=== PATIENT | female | born 1995 | race Hispanic/Latino ===

== ENCOUNTER 2017-07-27 08:06 | Emergency (ER) | payer MEDICAID ==
[2017-07-27 08:41] VITALS: BP 126/79
== END 2017-07-27 09:22 | disposition left against medical advice (07) ==
LOC: ED 08:06
DX: R42 Dizziness and giddiness (principal); Z53.21 Procedure and treatment not carried out due to patient leaving prior to being seen by health care provider

== ENCOUNTER 2021-02-11 00:51 | Emergency (ER) | payer MEDICAID ==
[2021-02-11 02:59] LABS: Basophils # (Auto) 0.1 K/mm3 (0.0-0.1); Basophils % (Auto) 1.1 % (0.0-1.8); Eosinophils # (Auto) 0.2 K/mm3 (0.0-0.4); Eosinophils % (Auto) 3.2 % (0.0-4.3); Hematocrit 39.6 % (30.3-42.9); Hemoglobin 13.2 gm/dl (10.1-14.3); Lymphocytes # (Auto) 2.5 K/mm3 (1.2-5.4); Lymphocytes % (Auto) 45.1 % (13.4-35.0); Mean Corpuscular HGB Conc 33 % (30-34); Mean Corpuscular Volume 84 fl (79-97); Monocytes # (Auto) 0.5 K/mm3 (0.0-0.8); Monocytes % (Auto) 9.5 % (0.0-7.3); Platelet Count 280 K/mm3 (140-440); Red Blood Count 4.69 M/mm3 (3.65-5.03); Red Cell Distribution Width 14.7 % (13.2-15.2)
[2021-02-11 03:03] LABS: Blood Urea Nitrogen 14 mg/dL (7-17); Calcium 9.3 mg/dL (8.4-10.2); Hemolysis Index 7
[2021-02-11 03:22] LABS: BUN/Creatinine Ratio 20
--- NOTE | 2021-02-11 06:38 | Emergency Department Report ---
ED General Adult HPI - General Chief complaint: Pain General Stated complaint: NAUSEA/WEAKNESS PUI?: No Time Seen by Provider: 02/11/21 06:36 Source: patient, EMS ( EMS documentation not available at time of chart dictati on ), RN notes reviewed Mode of arrival: Ambulatory Limitations: No Limitations - History of Present Illness Initial comments: During the history and physical examination, I am chaperoned by ANTONIO PETERSON This is a 25-year-old female. She presents to the ER with a complaint of fee ling "like crap", after recreational methamphetamine binge yesterday. She reports that she is not . She denies headache, neck pain, chest pain. She has abdominal cramping but no vomiting. She denies homicidality and suicidality. She denies loss of taste and smell. She denies focal extremity weakness/numbness. She is sleeping, and when woken up, states I need to be left alone." She is adamant that she is not . She was given Zofran prior to my personal evaluation. -: Gradual, Last night Consistency: now resolved Improves with: none Worsens with: none - Related Data Home Medications Medication Instructions Recorded Confirmed Last Taken Marion Carbonate 600 mg PO HS 08/10/14 08/10/14 08/09/14 Marion Carbonate [Marion 300 mg PO AMHY 08/10/14 08/10/14 08/09/14 Carbonate ER] Sertraline [Zoloft] 25 mg PO QDAY 08/10/14 08/10/14 08/09/14 risperiDONE [RisperDAL] 3 mg PO DAILY 08/10/14 08/10/14 08/09/14 Previous Rx's Medication Instructions Recorded Last Taken Type Acetaminophen [Tylenol] 325 mg PO Q6HR PRN #15 capsule 02/11/21 Unknown Rx Ibuprofen [Motrin] 400 mg PO Q8H PRN #30 tablet 02/11/21 Unknown Rx Naloxone HCl [Narcan Nasal New Site] 4 mg NS PRN PRN #1 spray 02/11/21 Unknown Rx Allergies Allergy/AdvReac Type Severity Reaction Status Date / Time amoxicillin Allergy Swelling Verified 08/10/14 18:08 Penicillins Allergy Swelling Verified 08/10/14 18:08 ED Review of Systems ROS: Stated complaint: NAUSEA/WEAKNESS Other details as noted in HPI Constitutional: denies: fever Eyes: denies: eye discharge ENT: denies: epistaxis Respiratory: denies: cough Cardiovascular: denies: chest pain Gastrointestinal: nausea Musculoskeletal: arthralgia, myalgia Neurological: weakness Psychiatric: denies: auditory hallucinations, visual hallucinations, homicidal thoughts, suicidal thoughts ED Past Medical Hx - Past Medical History Previous Medical History?: Yes Hx Seizures: Yes Hx Psychiatric Treatment: Yes (bipolar, depression) - Surgical History Past Surgical History?: No - Social History Smoking Status: Unknown if ever smoked - Medications Home Medications: Home Medications Medication Instructions Recorded Confirmed Last Taken Type Marion Carbonate 600 mg PO HS 08/10/14 08/10/14 08/09/14 History Marion Carbonate [Marion 300 mg PO AMHY 08/10/14 08/10/14 08/09/14 History Carbonate ER] Sertraline [Zoloft] 25 mg PO QDAY 08/10/14 08/10/14 08/09/14 History risperiDONE [RisperDAL] 3 mg PO DAILY 08/10/14 08/10/14 08/09/14 History Acetaminophen [Tylenol] 325 mg PO Q6HR PRN #15 capsule 02/11/21 Unknown Rx Ibuprofen [Motrin] 400 mg PO Q8H PRN #30 tablet 02/11/21 Unknown Rx Naloxone HCl [Narcan Nasal New Site] 4 mg NS PRN PRN #1 spray 02/11/21 Unknown Rx ED Physical Exam - General Limitations: No Limitations General appearance: alert, in no apparent distress - Head Head exam: Present: atraumatic, normocephalic - Eye Eye exam: Present: normal appearance, EOMI. Absent: nystagmus - ENT ENT exam: Present: normal exam, normal orophraynx, mucous membranes moist, normal external ear exam - Neck Neck exam: Present: normal inspection, full ROM. Absent: tenderness, meningismus - Respiratory Respiratory exam: Present: normal lung sounds bilaterally. Absent: respiratory distress, wheezes, rales, rhonchi, stridor, decreased breath sounds - Cardiovascular Cardiovascular Exam: Present: regular rate, normal rhythm, normal heart sounds. Absent: bradycardia, tachycardia, irregular rhythm, systolic murmur, diastolic murmur, rubs, gallop - GI/Abdominal GI/Abdominal exam: Present: soft. Absent: distended, tenderness, guarding, rebound, rigid, pulsatile mass - Extremities Exam Extremities exam: Present: normal inspection, full ROM, other (2+ pulses noted in the bilateral upper and lower extremities. There is no palpable cord. negative Homans sign. Muscular compartments are soft. The pelvis is stable.). Absent: pedal edema, calf tenderness - Back Exam Back exam: Present: normal inspection. Absent: tenderness, CVA tenderness (R), CVA tenderness (L), paraspinal tenderness, vertebral tenderness - Neurological Exam Neurological exam: Present: alert, oriented X3, other (No facial droop. Tongue midline. Extraocular movements intact bilaterally. Facial sensation intact to light touch in V1, V2, V3 distribution bilaterally. 5 and a 5 strength in 4 extremities. Sensation intact to light touch in 4 extremities.). Absent: motor sensory deficit - Psychiatric Psychiatric exam: Absent: homicidal ideation, suicidal ideation - Skin Skin exam: Present: warm, dry, intact, normal color. Absent: rash ED Course Vital Signs 02/11/21 02/11/21 02:03 12:25 Temperature 98.3 F Pulse Rate 97 H 74 Respiratory 16 18 Rate Blood Pressure 127/66 Blood Pressure 124/72 [Left] O2 Sat by Pulse 100 100 Oximetry - Reevaluation(s) Reevaluation #1: 02/11/21 08:14 Differential diagnosis, including but not limited to: Methamphetamine use, encounter for medical screening examination Assessment and plan: 25-year-old female, who was afebrile, with reassuring vital signs, who is clinically sober at this time, with a GCS of 15, not homicidal not suicidal, who exhibits decision-making capacity, with a soft benign abdomen, who is sleeping on my initial evaluation, and he is in no acute distress. No active vomiting at this time. Physical exam unremarkable. Laboratory studies ordered prior to my personal evaluation. test pending. Assuming patient not , we would consider this patient medically suitable for discharge, without presence of an obvious medically emergent condition 02/11/21 09:54 The patient has a lithium level of 2.1. The patient is adamant that she is not taking lithium. The patient states she is not homicidal or suicidal. The patient is not . Contacted poison control center, and discussed with [facility]. Have discussed the patient's history, physical, laboratory studies, and overall clinical impression. We will place patient on a cafeteria monitor. We will repeat lithium level. If within normal limits/subtherapeutic, would consider patient medically suitable for discharge. We will contact Poison Control Center once the patient's repeat lithium level has resulted. 02/11/21 11:09 Repeat lithium level 0.1. Have recontacted read at the Poison Control Center. Recommends a second level to ascertain that level has truly been persistently decreasing. Recommend 2-hour level. Please note that this patient is going to experience a prolonged stay in the emergency room because of the need for urgent diagnostic medical work-up. I suspect that the initial lithium level at this point time of 2.1 is likely an error, and/or hemolysis. The patient states she is not taking lithium. The patient states she is not suicidal. The patient states she is not homicidal. However, 2-hour level is ordered, and if unremarkable, plan is to discharge this patient. 02/11/21 13:43 Patient ambulating with a steady gait. Marion level unremarkable x2. Observed in this department for hours without clinical decompensation. Suitable for discharge at this point time. ED Medical Decision Making - Lab Data Result diagrams: 02/11/21 02:25 02/11/21 02:25 Vital Signs 02/11/21 02:03 Temperature 98.3 F Pulse Rate 97 H Respiratory 16 Rate Blood Pressure 127/66 O2 Sat by Pulse 100 Oximetry Vital Signs 02/11/21 02:03 Temperature 98.3 F Pulse Rate 97 H Respiratory 16 Rate Blood Pressure 127/66 O2 Sat by Pulse 100 Oximetry Lab Results 02/11/21 02/11/21 02/11/21 Range/Units 02:25 02:25 02:25 WBC (4.5-11.0) K/mm3 RBC (3.65-5.03) M/mm3 Hgb (10.1-14.3) gm/dl Hct (30.3-42.9) % MCV (79-97) fl MCH (28-32) pg MCHC (30-34) % RDW (13.2-15.2) % Plt Count (140-440) K/mm3 Lymph % (Auto) (13.4-35.0) % [place] % (Auto) (0.0-7.3) % Eos % (Auto) (0.0-4.3) % Baso % (Auto) (0.0-1.8) % Lymph # (Auto) (1.2-5.4) K/mm3 [place] # (Auto) (0.0-0.8) K/mm3 Eos # (Auto) (0.0-0.4) K/mm3 Baso # (Auto) (0.0-0.1) K/mm3 Seg Neutrophils % (40.0-70.0) % Seg Neutrophils # (1.8-7.7) K/mm3 Sodium 137 (137-145) mmol/L Potassium 4.3 (3.6-5.0) mmol/L Chloride 100.4 (98-107) mmol/L Carbon Dioxide 25 (22-30) mmol/L Anion Gap 16 mmol/L BUN 14 (7-17) mg/dL Creatinine 0.7 (0.6-1.2) mg/dL Estimated GFR > 60 ml/min BUN/Creatinine Ratio 20 % Glucose 83 (65-100) mg/dL Calcium 9.3 (8.4-10.2) mg/dL Salicylates < 0.3 L (2.8-20.0) mg/dL Acetaminophen 5.0 L (10.0-30.0) ug/mL Plasma/Serum Alcohol (0-0.07) % 02/11/21 02/11/21 Range/Units 02:25 02:25 WBC 5.6 (4.5-11.0) K/mm3 RBC 4.69 (3.65-5.03) M/mm3 Hgb 13.2 (10.1-14.3) gm/dl Hct 39.6 (30.3-42.9) % MCV 84 (79-97) fl MCH 28 (28-32) pg MCHC 33 (30-34) % RDW 14.7 (13.2-15.2) % Plt Count 280 (140-440) K/mm3 Lymph % (Auto) 45.1 H (13.4-35.0) % [place] % (Auto) 9.5 H (0.0-7.3) % Eos % (Auto) 3.2 (0.0-4.3) % Baso % (Auto) 1.1 (0.0-1.8) % Lymph # (Auto) 2.5 (1.2-5.4) K/mm3 [place] # (Auto) 0.5 (0.0-0.8) K/mm3 Eos # (Auto) 0.2 (0.0-0.4) K/mm3 Baso # (Auto) 0.1 (0.0-0.1) K/mm3 Seg Neutrophils % 41.1 (40.0-70.0) % Seg Neutrophils # 2.3 (1.8-7.7) K/mm3 Sodium (137-145) mmol/L Potassium (3.6-5.0) mmol/L Chloride (98-107) mmol/L Carbon Dioxide (22-30) mmol/L Anion Gap mmol/L BUN (7-17) mg/dL Creatinine (0.6-1.2) mg/dL Estimated GFR ml/min BUN/Creatinine Ratio % Glucose (65-100) mg/dL Calcium (8.4-10.2) mg/dL Salicylates (2.8-20.0) mg/dL Acetaminophen (10.0-30.0) ug/mL Plasma/Serum Alcohol < 0.01 (0-0.07) % Lab Results 02/11/21 02/11/21 02/11/21 Range/Units 02:25 02:25 02:25 WBC (4.5-11.0) K/mm3 RBC (3.65-5.03) M/mm3 Hgb (10.1-14.3) gm/dl Hct (30.3-42.9) % MCV (79-97) fl MCH (28-32) pg MCHC (30-34) % RDW (13.2-15.2) % Plt Count (140-440) K/mm3 Lymph % (Auto) (13.4-35.0) % [place] % (Auto) (0.0-7.3) % Eos % (Auto) (0.0-4.3) % Baso % (Auto) (0.0-1.8) % Lymph # (Auto) (1.2-5.4) K/mm3 [place] # (Auto) (0.0-0.8) K/mm3 Eos # (Auto) (0.0-0.4) K/mm3 Baso # (Auto) (0.0-0.1) K/mm3 Seg Neutrophils % (40.0-70.0) % Seg Neutrophils # (1.8-7.7) K/mm3 Sodium 137 (137-145) mmol/L Potassium 4.3 (3.6-5.0) mmol/L Chloride 100.4 (98-107) mmol/L Carbon Dioxide 25 (22-30) mmol/L Anion Gap 16 mmol/L BUN 14 (7-17) mg/dL Creatinine 0.7 (0.6-1.2) mg/dL Estimated GFR > 60 ml/min BUN/Creatinine Ratio 20 % Glucose 83 (65-100) mg/dL Calcium 9.3 (8.4-10.2) mg/dL Total Creatine Kinase (30-135) units/L HCG, Quant (0-4) mIU/mL Salicylates < 0.3 L (2.8-20.0) mg/dL Acetaminophen 5.0 L (10.0-30.0) ug/mL Marion (0.0-1.2) mmol/L Plasma/Serum Alcohol (0-0.07) % 02/11/21 02/11/21 02/11/21 Range/Units 02:25 02:25 02:25 WBC 5.6 (4.5-11.0) K/mm3 RBC 4.69 (3.65-5.03) M/mm3 Hgb 13.2 (10.1-14.3) gm/dl Hct 39.6 (30.3-42.9) % MCV 84 (79-97) fl MCH 28 (28-32) pg MCHC 33 (30-34) % RDW 14.7 (13.2-15.2) % Plt Count 280 (140-440) K/mm3 Lymph % (Auto) 45.1 H (13.4-35.0) % [place] % (Auto) 9.5 H (0.0-7.3) % Eos % (Auto) 3.2 (0.0-4.3) % Baso % (Auto) 1.1 (0.0-1.8) % Lymph # (Auto) 2.5 (1.2-5.4) K/mm3 [place] # (Auto) 0.5 (0.0-0.8) K/mm3 Eos # (Auto) 0.2 (0.0-0.4) K/mm3 Baso # (Auto) 0.1 (0.0-0.1) K/mm3 Seg Neutrophils % 41.1 (40.0-70.0) % Seg Neutrophils # 2.3 (1.8-7.7) K/mm3 Sodium (137-145) mmol/L Potassium (3.6-5.0) mmol/L Chloride (98-107) mmol/L Carbon Dioxide (22-30) mmol/L Anion Gap mmol/L BUN (7-17) mg/dL Creatinine (0.6-1.2) mg/dL Estimated GFR ml/min BUN/Creatinine Ratio % Glucose (65-100) mg/dL Calcium (8.4-10.2) mg/dL Total Creatine Kinase (30-135) units/L HCG, Quant < 2 (0-4) mIU/mL Salicylates (2.8-20.0) mg/dL Acetaminophen (10.0-30.0) ug/mL Marion (0.0-1.2) mmol/L Plasma/Serum Alcohol < 0.01 (0-0.07) % 02/11/21 02/11/21 Range/Units 02:25 02:25 WBC (4.5-11.0) K/mm3 RBC (3.65-5.03) M/mm3 Hgb (10.1-14.3) gm/dl Hct (30.3-42.9) % MCV (79-97) fl MCH (28-32) pg MCHC (30-34) % RDW (13.2-15.2) % Plt Count (140-440) K/mm3 Lymph % (Auto) (13.4-35.0) % [place] % (Auto) (0.0-7.3) % Eos % (Auto) (0.0-4.3) % Baso % (Auto) (0.0-1.8) % Lymph # (Auto) (1.2-5.4) K/mm3 [place] # (Auto) (0.0-0.8) K/mm3 Eos # (Auto) (0.0-0.4) K/mm3 Baso # (Auto) (0.0-0.1) K/mm3 Seg Neutrophils % (40.0-70.0) % Seg Neutrophils # (1.8-7.7) K/mm3 Sodium (137-145) mmol/L Potassium (3.6-5.0) mmol/L Chloride (98-107) mmol/L Carbon Dioxide (22-30) mmol/L Anion Gap mmol/L BUN (7-17) mg/dL Creatinine (0.6-1.2) mg/dL Estimated GFR ml/min BUN/Creatinine Ratio % Glucose (65-100) mg/dL Calcium (8.4-10.2) mg/dL Total Creatine Kinase 33 (30-135) units/L HCG, Quant (0-4) mIU/mL Salicylates (2.8-20.0) mg/dL Acetaminophen (10.0-30.0) ug/mL Marion 2.1 H* (0.0-1.2) mmol/L Plasma/Serum Alcohol (0-0.07) % - EKG Data -: EKG Interpreted by Me EKG shows normal: sinus rhythm Rate: normal - EKG Data When compared to previous EKG there are: previous EKG unavailable 02/11/21 09:53 The EKG is interpreted at 09: 40 a.m. Sinus rhythm, 92 bpm. Normal axis, QTC 462 ms. Borderline high left karen tricular voltage. Incomplete right bundle branch block. Abnormal EKG. Not a STEMI. Critical care attestation.: If time is entered above; I have spent that time in minutes in the direct care of this critically ill patient, excluding procedure time. ED Disposition Clinical Impression: Methamphetamine use, Encounter for medical screening examination Disposition: DC-01 TO HOME OR SELFCARE Is pt being admited?: No Does the pt Need Aspirin: No Condition: Good Instructions: Amphetamines Use Disorder, Substance Use Disorder and Mental Illness Additional Instructions: We recommend that the patient abstain from consumption for methamphetamines and recreational drugs. Consumption of the aforementioned may cause addiction, disability, , paralysis, and loss of quality of life. Drink plenty of fluids, patient may take the pain medication, nausea medications as needed and directed. Recommend that patient not drive or operate motor vehicles for the next 6 months, or until cleared to do so by a primary care doctor. Patient may take the pain medication, nausea medication as needed and directed. Please follow-up with your primary care doctor and/or data warehouse specialist within the next 3 to 5 days. Please return to the emergency room right away with new pain, worsened pain, migration of pain, projectile vomiting, change in mental status, confusion, inability to tolerate liquid feeds, homicidality, suicidality, or any new, worsened or different symptoms not present on the initial emergency room evaluation. For the patient's convenience, a number of local primary care doctors offices have been listed that she may follow-up with. Obviously, avoid consumption of alcohol, tobacco, opioids, narcotics, sedatives, stimulants, and in general, all intoxicating substances. Prescriptions: Ibuprofen [Motrin] 400 mg PO Q8H PRN #30 tablet PRN Reason: Opioid Reversal Naloxone HCl [Narcan Nasal New Site] 4 mg NS PRN PRN #1 spray PRN Reason: Opioid Reversal Acetaminophen [Tylenol] 325 mg PO Q6HR PRN #15 capsule PRN Reason: Pain , Severe (7-10) Referrals: MARGOT ENNIS MD [Staff Physician] - 3-5 Days [facility] [Provider Group] - 3-5 Days [facility] [Outside] - 3-5 Days
[2021-02-11 12:27] VITALS: BP 124/72
--- NOTE | 2021-02-13 10:09 | Electrocardiograph Report ---
[facility] Test Date: 2021-02-11 Test Time: 09:40:13 Pat Name: HORTENSIA LINDSEY Department: Room: Gender: F [employer]cery [employer] Manager: MRI SPECIALIST : 1995 Requested By: BRADLEY MCLAUGHLIN Order Number: [id number] Reading MD: Maximiliano Conklin Measurements Intervals [place] Rate: 92 P: 68 AR: 147 QRS: 76 QRSD: 80 T: 59 QT: 374 QTc: 462 Interpretive Statements Sinus rhythm No previous ECG available for comparison Electronically Signed On 02-13-2021 10:08:40 EDT by Maximiliano Conklin
== END 2021-02-11 15:00 | disposition home or self-care (01) ==
LOC: ED 00:51
DX: F15.90 Other stimulant use, unspecified, uncomplicated (principal); Z00.00 Encounter for general adult medical examination without abnormal findings; R56.9 Unspecified convulsions; F31.9 Bipolar disorder, unspecified; Z79.899 Other long term (current) drug therapy; Z88.1 Allergy status to other antibiotic agents; Z88.0 Allergy status to penicillin
CPT/HCPCS: 36415; 80048; 80178; 80320; 82550; 84702; 85025; 93005; G0480